=== PATIENT | male | born 1980 ===

== ENCOUNTER 2023-07-28 18:38 | Outpatient (RCR) | payer OTHER, SELFPAY | END 2023-07-28 23:59 | disposition home or self-care (01) | LOC: RPT 18:38 | PROVIDERS: ATTENDING PHYSICIAN Family Medicine Sports Medicine; FAMILY PHYSICIAN Neurological Surgery | DX: M25.552 Pain in left hip (principal); Z73.6 Limitation of activities due to disability | CPT/HCPCS: 97110; 97140 ==

== ENCOUNTER 2023-08-13 19:05 | Outpatient (RCR) | payer OTHER, SELFPAY | END 2023-08-13 23:59 | disposition home or self-care (01) | LOC: RPT 19:05 | PROVIDERS: ATTENDING PHYSICIAN Family Medicine Sports Medicine; FAMILY PHYSICIAN Neurological Surgery | DX: M25.552 Pain in left hip (principal); Z73.6 Limitation of activities due to disability | CPT/HCPCS: 97110; 97140 ==

== ENCOUNTER 2024-01-03 13:02 | Emergency (ER) | payer OTHER, SELFPAY ==
[2024-01-03 13:04] VITALS: BP 145/105
--- NOTE | 2024-01-03 14:18 | ED.GENMED ---
History of Present Illness
General
Chief Complaint: Musculo-Skeletal Complaint
Time Seen by Provider: 01/03/24 14:16
History of Present Illness
History of Present Illness:
HPI: Patient presents due to pain in the left low back radiates into the left proximal thigh. He has no bowel or bladder incontinence or retention. He states that he has been seen by [facility] in the past and they have ordered physical therapy which
helped for a while. Symptoms now have worsened. He does not want narcotic analgesia.
EXAM:
GENERAL: Well appearing in no distress
HEENT: Moist oral mucosa
BACK: There is no lumbar tenderness, negative straight leg raise
NEUROLOGIC: Excellent strength all extremities, no coordination deficits, he was able to take several steps with only minimal however also indicated that he could not walk, 5 out of 5 strength in plantar and dorsiflexion bilaterally, good flexion
at the hip and knees, somewhat decreased L4 patellar reflexes bilaterally
PSYCHIATRIC: Appropriate mental status, normal insight and judgement
EXTREMITIES: Nontender, no edema, moves all extremities equally
SKIN: No rash, no lesions
TIME OF INITIAL ENCOUNTER: 2:30 PM
NUMBER AND COMPLEXITY OF PROBLEMS ADDRESSED AT THE ENCOUNTER
� Chronic conditions affecting care: Asthma
� Acute Exacerbation and/or Progression of Chronic Illness: This is an acute but recurring problem
� Differential Diagnosis includes: Sciatica, herniated disc, cauda equina syndrome very unlikely, lumbar stenosis
AMOUNT AND/OR COMPLEXITY OF DATA TO BE REVIEWED AND ANALYZED
� I performed an independent evaluation of and my interpretation is:
EKG:
CT:
X-rays:
Laboratory Studies:
Other:
� Review of other/old records: I reviewed records, he has no imaging studies here for review
� Clinical information was obtained by an independent historian:
� Prescriptions/Medications Considered but not given: Offered/considered narcotic however he declines
� Further testing considered but not performed: Considered MRI�see below
RISK OF COMPLICATIONS AND/OR MORBIDITY OR MORTALITY OF PATIENT MANAGEMENT
� Social determinants of health affecting care: Lives at home
� Discussion with other providers: Discussed case with radiology (Dr. Lee) regarding MRI�MRI techs are not here now
� Escalation of care including admission/observation vs risk of discharge considered: We ultimately agreed to try steroids. He has no back pain red flags. He was able to walk with only minimal difficulty here.
Phy Exam
Physical Exam
Physical Exam:
See HPI
Course
Orders/Labs/Results
Orders:
Orders
01/03/24 14:44
Prednisone [Deltasone] 50 mg PO NOW STA
01/03/24 14:46
Prednisone [Deltasone] 50 mg PO NOW STA
Vital Signs
Initial and Last Documented VS:
Initial Vital Signs
Temp Pulse Resp BP Pulse Ox
98.4 F 76 16 145/105 98
01/03/24 13:04 01/03/24 13:04 01/03/24 13:04 01/03/24 13:04 01/03/24 13:04
Last Documented Vital Signs
Temp Pulse Resp BP Pulse Ox
98.4 F 76 16 145/105 98
01/03/24 13:04 01/03/24 13:04 01/03/24 13:04 01/03/24 13:04 01/03/24 13:04
*Critical Care Note
Total Time (30-74mins, 75-104mins- exclusive of procedures): Not Applicable
ED Attending Note
-
Portions of this chart may have been created with voice recognition software.� Occasional wrong word or��sound alike� substitutions may have occurred due to the inherent limitations of voice recognition software.
Discharge Plan
Departure
Patient Disposition: Home (Routine Discharge)
Date of Disposition: 01/03/24
Time of Disposition: 14:44
Patient with high blood pressure during this ER visit?: Yes
Discharge Problem:
Sciatica
Instructions: Sciatica ED
Prescriptions:
New
prednisone 50 mg tablet
50 mg PO DAILY Qty: 5 0RF
Referrals:
Satish Barrientos DO [Family Provider] -
Jesse Willett MD [Active] - Follow up in 2-3 days
Activity Restrictions/Additional Instructions:
Follow-up with [facility]. I sent a prescription for prednisone to your pharmacy. Return here if worse. I recommend Benadryl or [id number] Unisom (doxylamine) to help with sleep as steroids can interfere with sleep as well.
Interventions
Interventions:
*Risk Screen - Suicide Last Done: 01/03/24 13:44
*General Assessment Last Done: 01/03/24 13:44
*Neglect/Abuse Screening Last Done: 01/03/24 13:44
*ED COVID-19 Vaccine History Last Done: 01/03/24 13:44
ED-Musculoskeletal Assessment Last Done: 01/03/24 13:44
Discharge Date and Time
Print Language: CZECH
[2024-01-03] MEDS: DELTASONE 50 MG PO (14:51)
== END 2024-01-03 14:57 | disposition home or self-care (01) ==
LOC: EMR 13:02
PROVIDERS: EMERGENCY PHYSICIAN Emergency Medicine; FAMILY PHYSICIAN Family Medicine
DX: M54.40 Lumbago with sciatica, unspecified side (principal)
CPT/HCPCS: 99282

== ENCOUNTER → 2024-01-09 14:58 | Outpatient (REF) | payer OTHER, SELFPAY | LOC: MRI 14:58 | PROVIDERS: ATTENDING PHYSICIAN Physician Assistant Surgical; FAMILY PHYSICIAN Family Medicine | DX: M54.16 Radiculopathy, lumbar region (principal); M25.552 Pain in left hip; M54.50 Low back pain, unspecified | CPT/HCPCS: 72148 ==

== ENCOUNTER 2024-02-04 09:14 | Outpatient (RCR) | payer OTHER, SELFPAY | END 2024-02-04 23:59 | disposition home or self-care (01) | LOC: RPT 09:14 | PROVIDERS: ATTENDING PHYSICIAN Physician Assistant Surgical; FAMILY PHYSICIAN Family Medicine | DX: M54.16 Radiculopathy, lumbar region (principal); M25.552 Pain in left hip; Z73.6 Limitation of activities due to disability | CPT/HCPCS: 97110; 97140; 97162 ==

== ENCOUNTER 2024-03-01 18:14 | Outpatient (RCR) | payer OTHER, SELFPAY | END 2024-03-01 23:59 | disposition home or self-care (01) | LOC: RPT 18:14 | PROVIDERS: ATTENDING PHYSICIAN Physician Assistant Surgical; FAMILY PHYSICIAN Family Medicine | DX: M54.16 Radiculopathy, lumbar region (principal); M25.552 Pain in left hip; Z73.6 Limitation of activities due to disability | CPT/HCPCS: 97110; 97112; 97140 ==

== ENCOUNTER 2024-04-05 17:06 | Outpatient (RCR) | payer OTHER, SELFPAY | END 2024-04-05 23:59 | disposition home or self-care (01) | LOC: RPT 17:06 | PROVIDERS: ATTENDING PHYSICIAN Physician Assistant Surgical; FAMILY PHYSICIAN Family Medicine | DX: M54.16 Radiculopathy, lumbar region (principal); M25.552 Pain in left hip; Z73.6 Limitation of activities due to disability | CPT/HCPCS: 97110; 97140 ==

== ENCOUNTER 2024-05-03 17:04 | Outpatient (RCR) | payer OTHER, SELFPAY | END 2024-05-03 23:59 | disposition home or self-care (01) | LOC: RPT 17:04 | PROVIDERS: ATTENDING PHYSICIAN Physician Assistant Surgical; FAMILY PHYSICIAN Family Medicine | DX: M54.16 Radiculopathy, lumbar region (principal); M25.552 Pain in left hip; Z73.6 Limitation of activities due to disability | CPT/HCPCS: 97110; 97112; 97140 ==

== ENCOUNTER 2024-05-24 17:55 | Outpatient (RCR) | payer OTHER, SELFPAY | END 2024-05-24 23:59 | disposition home or self-care (01) | LOC: RPT 17:55 | PROVIDERS: ATTENDING PHYSICIAN Physician Assistant Surgical; FAMILY PHYSICIAN Family Medicine | DX: M54.16 Radiculopathy, lumbar region (principal); M25.552 Pain in left hip; Z73.6 Limitation of activities due to disability | CPT/HCPCS: 97110 ==

== ENCOUNTER → 2024-06-07 11:03 | Outpatient (REF) | payer OTHER, SELFPAY | LOC: REG 11:03 | PROVIDERS: ATTENDING PHYSICIAN Family Medicine | DX: R05.1 Acute cough (principal) | CPT/HCPCS: 71046 ==